=== PATIENT | male | born 1960 | race Caucasian/White ===

== ENCOUNTER 2023-09-17 23:43 | Emergency (ER) | payer BC, OTHER ==
[2023-09-18 00:43] LABS: Absolute Eosinophils 0.1 K/uL (0-0.5); Absolute Monocytes 0.8 K/uL (0.1-1.3); Absolute Neutrophil 4.4 K/uL (1.8-8.0); Basophils % 0.5 % (0-1.3); Eosinophils % 1.2 % (0-4.4); Hematocrit 42.2 % (39.6-49.0); Hemoglobin 14.5 g/dL (13.6-17.9); Lymphocytes % 36.3 % (15.3-44.8); MCH 29.8 pg (27.0-35.0); MCHC 34.4 g/dL (32.0-36.0); MCV 86.4 fL (80-100); MPV 7.4 fL (7.6-11.3); Monocytes % 9.4 % (3.3-12.3); Neutrophils % 52.6 % (41.7-73.7); Nucleated Red Blood Cells % 0.1 % (0-0); Platelets 282 thou/uL (152-406); RBC Red Blood Cell Count 4.89 M/uL (4.33-5.43); Red Cell Distribution Width 12.7 % (12.1-15.2)
[2023-09-18 00:44] LABS: PT Prothrombin Time 11.2 SECONDS (9.4-12.5)
[2023-09-18 00:54] LABS: ALT/SGPT 22 U/L (16-61); AST/SGOT 12 U/L (15-37); Albumin 3.9 g/dL (3.4-5.0); Albumin/Globulin Ratio 1.3 (1.1-1.8); Alkaline Phosphatase 89 U/L (45-117); Anion Gap 9.6 mEq/L (5.0-15.0); BUN Blood Urea Nitrogen 19 mg/dL (7-18); Bicarbonate 26 mEq/L (21-32); Bilirubin Total 0.5 mg/dL (0.2-1.0); Glomerular Filtration Rate 90 ml/min (=/>90); Glucose Level 119 mg/dL (74-106); Magnesium 2.2 mg/dL (1.6-2.4); NT PRO-BNP 14 pg/mL (<125); Potassium 3.6 mEq/L (3.5-5.1); Protein, Total 6.9 g/dL (6.4-8.2); Sodium Level 136 mEq/L (136-145); Troponin High Sensitivity 7.4 pg/mL (<58.9)
[2023-09-18 01:08] LABS: Bilirubin Direct < 0.2 mg/dL (0-0.2); Bilirubin Indirect, Calculated 0.3 mg/dL (0.2-0.8)
--- NOTE | 2023-09-18 02:39 | EDPHYS ---
Physician Documentation [facility] Name: Eb Bajwa Age: 63 yrs Sex: Male : 1960 Arrival Date: 09/17/2023 Time: 23:43 Bed 5 Private MD: ED Physician Abbey Vogel HPI: 09/17 00:07 This 63 yrs old Male presents to ER via Ambulatory with complaints of Chest Tightness. sp3 00:07 63-year-old male with history of hypertension now presents with a 2-hour history of sp3 chest tightness as he was trying to go to sleep. He denies any other symptoms including headache, neck pain, sharp chest pain, shortness of breath, cough, abdominal pain, nausea, vomiting, diarrhea, syncope, near syncope, focal neurological deficit, fever, known sick contacts, travel history, prior DVT or PE, or any other signs or symptoms on ROS at this time.. Historical: - Allergies: 09/16 23:55 No Known Allergies; cp4 - PMHx: 23:55 Hypertensive disorder; cp4 - Immunization history:: Adult Immunizations up to date. - Infectious Disease History:: Denies. - Social history:: Smoking status: Patient denies any tobacco usage or history of. ROS: 09/17 00:08 Constitutional: Negative for fever, chills, and weight loss, Eyes: Negative for injury, sp3 pain, redness, and discharge, ENT: Negative for injury, pain, and discharge, Neck: Negative for injury, pain, and swelling, Respiratory: Negative for shortness of breath, cough, wheezing, and pleuritic chest pain, Abdomen/GI: Negative for abdominal pain, nausea, vomiting, diarrhea, and constipation, Back: Negative for injury and pain, : Negative for injury, bleeding, discharge, and swelling, MS/Extremity: Negative for injury and deformity, Skin: Negative for injury, rash, and discoloration, Neuro: Negative for headache, weakness, numbness, tingling, and seizure, Psych: Negative for depression, anxiety, suicide ideation, homicidal ideation, and hallucinations, Allergy/Immunology: Negative for hives, rash, and allergies, Endocrine: Negative for neck swelling, polydipsia, polyuria, polyphagia, and marked weight changes, Hematologic/Lymphatic: Negative for swollen nodes, abnormal bleeding, and unusual bruising, All other systems are negative, Exam: 00:08 Constitutional: This is a well developed, well nourished patient who is awake, alert, sp3 and in no acute distress. Head/Face: Normocephalic, atraumatic. Eyes: Pupils equal round and reactive to light, extra-ocular motions intact. Lids and lashes normal. Conjunctiva and sclera are non-icteric and not injected. Cornea within normal limits. Periorbital areas with no swelling, redness, or edema. ENT: Nares patent. No nasal discharge, no septal abnormalities noted. External auditory canals are clear. Oropharynx with no redness, swelling, or masses, exudates, or evidence of obstruction, uvula midline. Mucous membranes moist. Neck: Trachea midline, no thyromegaly or masses palpated, and no cervical lymphadenopathy. Supple, full range of motion without nuchal rigidity, or vertebral point tenderness. No Meningismus. Chest/axilla: Normal chest wall appearance and motion. Nontender with no deformity. No lesions are appreciated. Cardiovascular: Regular rate and rhythm with a normal S1 and S2. No gallops, murmurs, or rubs. Normal PMI, no JVD. No pulse deficits. Respiratory: Lungs have equal breath sounds bilaterally, clear to auscultation and percussion. No rales, rhonchi or wheezes noted. No increased work of breathing, no retractions or nasal flaring. Abdomen/GI: Soft, non-tender, with normal bowel sounds. No distension or tympany. No guarding or rebound. No evidence of tenderness throughout. Back: No spinal tenderness. No costovertebral tenderness. Full range of motion. Skin: Warm, dry with normal turgor. Normal color with no rashes, no lesions, and no evidence of cellulitis. MS/ Extremity: Pulses equal, no cyanosis. Neurovascular intact. Full, normal range of motion. Neuro: Awake and alert, GCS 15, oriented to person, place, time, and situation. Cranial nerves II-XII grossly intact. Motor strength 5/5 in all extremities. Sensory grossly intact. Cerebellar exam normal. Normal gait. Psych: Awake, alert, with orientation to person, place and time. Behavior, mood, and affect are within normal limits. 00:08 ECG was reviewed by the Attending Physician. EKG demonstrates normal sinus rhythm at 67 bpm with normal intervals, normal QRS, nonspecific diffuse ST's ST changes without evidence of acute ischemia. Vital Signs: 09/16 23:53 BP 165 / 93; Pulse 66; Resp 18; Temp 98; Pulse Ox 100% ; cp4 09/17 02:57 BP 119 / 93; Pulse 63; Resp 19; Pulse Ox 98% on R/A; br2 MDM: 09/16 23:53 Patient medically screened. 3 09/17 00:09 Data reviewed: vital signs, nurses notes, lab test result(s), EKG, radiologic studies. 3 ED course: 63-year-old male with chest tightness. Differential diagnosis includes acute coronary syndrome, musculoskeletal chest pain, esophageal reflux, among others. I am not highly suspicious for pneumonia, bronchitis, sepsis, shock, aortic pathology, other vascular pathology, or any other critical illness at this time. Workup will include EKG which is already documented above, chest x-ray and general laboratory work with 2 troponins 1 hour apart. Probable low heart score after troponins are back. Probable discharge home with follow-up with local cardiology for outpatient stress test. Patient well-appearing and in no acute distress.. 09/16 23:53 Order name: Basic Metabolic Panel; Complete Time: 01:36 3 09/16 23:53 Order name: CBC with Diff; Complete Time: 01:36 3 09/16 23:53 Order name: LFT's; Complete Time: 01:36 3 09/16 23:53 Order name: Magnesium; Complete Time: 01:36 3 09/16 23:53 Order name: NT PRO-BNP; Complete Time: 01:36 3 09/16 23:53 Order name: PT-INR; Complete Time: 01:36 3 09/16 23:53 Order name: Troponin HS; Complete Time: 01:36 3 09/17 02:05 Order name: Troponin High Sensitivity; Complete Time: 02:39 3 09/16 23:53 Order name: XRAY Chest (1 view) 3 09/16 23:53 Order name: Cardiac monitoring; Complete Time: 23:59 3 09/16 23:53 Order name: EKG - Nurse/Tech; Complete Time: 23:59 3 09/16 23:53 Order name: IV Saline Lock; Complete Time: 00:22 3 09/16 23:53 Order name: Labs collected and sent; Complete Time: 00:22 sp3 09/16 23:53 Order name: O2 Per Protocol; Complete Time: 23:59 sp3 09/16 23:53 Order name: O2 Sat Monitoring; Complete Time: 23:59 sp3 Administered Medications: No medications were administered Disposition Summary: 09/18/23 02:39 Discharge Ordered Notes: Location: Home sp3 Condition: Stable sp3 Diagnosis - Chest pain, unspecified sp3 Followup: sp3 - With: Zan Santana MD - When: Upon discharge from the Emergency Department - Reason: Continuance of care Discharge Instructions: - Discharge Summary Sheet sp3 - Nonspecific Chest Pain, Adult sp3 Forms: - Medication Reconciliation Form sp3 - Antibiotic Education sp3 - Prescription Opioid Use sp3 - Patient Portal Instructions sp3 - Leadership Thank You Letter sp3 Signatures: Dispatcher [employer] EDMS Abbey Vogel MD MD sp3 Ce Sterling cp4 Corrections: (The following items were deleted from the chart) 01:44 01:00 Troponin High Sensitivity+C.LAB.BRZ ordered. EDMS EDMS 01:44 01:36 Troponin High Sensitivity+C.LAB.BRZ reviewed. sp3 EDMS
--- NOTE | 2023-09-18 02:39 | ER ---
Nurse's Notes [facility] Name: Eb Bajwa Age: 63 yrs Sex: Male : 1960 Arrival Date: 09/17/2023 Time: 23:43 Bed 5 Private MD: Diagnosis: Chest pain, unspecified Presentation: 09/16 23:53 Chief complaint: Patient states: chest pain that started at 2200. Coronavirus screen: cp4 Client denies travel out of the [place] in the last 14 days. At this time, the client does not indicate any symptoms associated with coronavirus-19. Ebola Screen: Patient negative for fever greater than or equal to 101.5 degrees Fahrenheit, and additional compatible Ebola Virus Disease symptoms Patient denies exposure to infectious person. Patient denies travel to an Ebola-affected area in the 21 days before illness onset. No symptoms or risks identified at this time. Initial Sepsis Screen: Does the patient meet any 2 criteria? No. Patient's initial sepsis screen is negative. Does the patient have a suspected source of infection? No. Patient's initial sepsis screen is negative. Risk Assessment: Do you want to hurt yourself or someone else? Patient reports no desire to harm self or others. Onset of symptoms was September 17, 2023. 23:53 Method Of Arrival: Ambulatory cp4 23:53 Acuity: DAVID 3 cp4 Triage Assessment: 23:55 General: Appears in no apparent distress. comfortable, Behavior is calm, cooperative, cp4 appropriate for age. Pain: Complains of pain in chest Pain does not radiate. Pain currently is 6 out of 10 on a pain scale. EENT: No deficits noted. Neuro: Level of Consciousness is awake, alert, obeys commands, Oriented to person, place, time, situation. Cardiovascular: Rhythm is sinus rhythm. Respiratory: No deficits noted. GI: No deficits noted. : No deficits noted. Derm: No deficits noted. Musculoskeletal: No deficits noted. Historical: - Allergies: 23:55 No Known Allergies; cp4 - PMHx: 23:55 Hypertensive disorder; cp4 - Immunization history:: Adult Immunizations up to date. - Infectious Disease History:: Denies. - Social history:: Smoking status: Patient denies any tobacco usage or history of. Screenin:56 [facility] ED Fall Risk Assessment (Adult) History of falling in the last 3 months, cp4 including since admission No falls in past 3 months (0 pts) Confusion or Disorientation No (0 pts) Intoxicated or Sedated No (0 pts) Impaired Gait No (0 pts) Mobility Assist Device Used No (0 pt) Altered Elimination No (0 pt) Score/Fall Risk Level 0 - 2 = Low Risk Oriented to surroundings, Maintained a safe environment, Assessed \T\ reinforced patient's understanding of fall precautions, Hourly rounding (assess needs \T\ fall precautionary measures) done. Abuse screen: Denies threats or abuse. Nutritional screening: No deficits noted. Tuberculosis screening: No symptoms or risk factors identified. Assessment: 23:56 Reassessment: No changes from previously documented assessment. Pain: Pain began 2 cp4 hours ago. 09/17 02:18 General: Appears in no apparent distress. Behavior is calm, cooperative. Pain: kd3 Complains of pain in chest. Neuro: Level of Consciousness is awake, alert, obeys commands, Oriented to person, place, time, situation. Cardiovascular: Capillary refill < 3 seconds. Respiratory: Airway is patent Trachea midline Respiratory effort is even, unlabored, Respiratory pattern is regular, symmetrical. 02:58 Pain: Denies pain. br2 Vital Signs: 09/16 23:53 BP 165 / 93; Pulse 66; Resp 18; Temp 98; Pulse Ox 100% ; cp4 09/17 02:57 BP 119 / 93; Pulse 63; Resp 19; Pulse Ox 98% on R/A; br2 ED Course: 09/16 23:47 Patient arrived in ED. gm2 23:47 Abbey Vogel MD is Attending Physician. sp3 23:54 Triage completed. cp4 23:55 Arm band placed on right wrist. Patient placed in waiting room. cp4 23:56 Bed in low position. Call light in reach. Side rails up X 1. Provided Education on:. cp4 Client placed on continuous cardiac and pulse oximetry monitoring. NIBP monitoring applied. shelter monitor on. Pulse ox on. 23:56 No provider procedures requiring assistance completed. Patient maintains SpO2 cp4 saturation greater than 95% on room air. 09/17 00:22 Ce Sterling is Primary Nurse. cp4 00:34 Inserted saline lock: 20 gauge in right hand, using aseptic technique. br2 00:37 XRAY Chest (1 view) In Process Unspecified. EDMS 02:39 Zan Santana MD is Referral Physician. sp3 02:55 IV discontinued, intact, No redness/swelling at site. Pressure dressing applied. br2 Administered Medications: No medications were administered Medication: 09/16 23:56 VIS not applicable for this client. cp4 Outcome: 09/17 02:39 Discharge ordered by MD. sp3 02:58 Discharged to home ambulatory, with significant other, br2 02:58 Condition: stable 02:58 Discharge instructions given to patient, Instructed on discharge instructions, follow up and referral plans. Demonstrated understanding of instructions, follow-up care, 03:03 Patient left the ED. br2 Signatures: Dispatcher [employer] EDMS Abbey Vogel MD MD sp3 Anahi Ellis, RN RN cisco3 Ce Sterling cp4 Zabrina Arana gm2 Kerrie Archer RN RN br2
[2023-09-18 03:27] VITALS: BP 165/93; TEMP 98; O2SAT 100
--- NOTE | 2023-09-18 13:05 | EKG ---
Test Date: 2023-09-17 Test Time: 23:52:34 Rn Anesthesiology: SALINA MEASUREMENT RESULTS: Intervals: Rate: 67 MT: 154 QRSD: 92 QT: 414 QTc: 437 [place]: P: 43 MT: 154 QRS: 6 T: 48 INTERPRETIVE STATEMENTS: Normal sinus rhythm Septal infarct, age undetermined Abnormal ECG Compared to ECG 04/27/1993 07:19:00 Myocardial infarct finding now present T-wave abnormality no longer present Electronically Signed On 09-18-23 13:04:55 CDT by Zan Santana
--- NOTE | 2023-09-18 17:42 | RAD REPORT ---
EXAM DESCRIPTION: RAD - Chest Single View - 09/18/2023 12:35 am CLINICAL HISTORY: CHEST PAIN COMPARISON: None. TECHNIQUE: XR CHEST 1 VIEW 09/17/2023 11:53 PM CDT FINDINGS: The heart is borderline in size. Lungs are clear without consolidation, atelectasis, mass or edema. There is no pleural effusion. There is no pneumothorax. There are no acute osseous findings . IMPRESSION: Clear lungs. Electronically signed by: Jasen Mendez MD 09/18/2023 02:09 AM CDT RP Due to temporary technical issues with the PACS/Fluency reporting system, reports are being signed by the in house radiologists without review as a courtesy to insure prompt reporting. The interpreting radiologist is fully responsible for the content of the report.
== END 2023-09-18 03:03 | disposition home or self-care (01) ==
LOC: ER 23:43
DX: R07.89 Other chest pain (principal); I10 Essential (primary) hypertension
CPT/HCPCS: 36415; 71045; 80048; 80076; 83735; 83880; 84484; 85025; 85610; 93005; 99284